=== PATIENT | male | born 1985 | race African-American/Black ===

== ENCOUNTER 2016-09-08 17:08 | Emergency (ER) | payer SELFPAY ==
[~2016-09-08 17:08] MED LIST: NO HOME MEDS
== END 2016-09-08 20:30 ==
LOC: EDMED 17:08
PROC: 2W3JX1Z Immobilization of Right Finger using Splint (ICD-10-PCS; principal; 2016-09-08)
DX: M20.011 Mallet finger of right finger(s) (principal); F17.210 Nicotine dependence, cigarettes, uncomplicated